=== PATIENT | female | born 1990 | race Two or more races ===

== ENCOUNTER 2016-12-25 11:59 | Emergency (ER) | payer OTHER ==
[~2016-12-25] VITALS: Ht 154.9 cm; Wt 92.1 kg
[2016-12-25 12:06] VITALS: BP 150/76
== END 2016-12-25 13:01 | disposition home or self-care (01) ==
LOC: ED 11:59
DX: G89.29 Other chronic pain (principal); M54.5 Low back pain

== ENCOUNTER 2017-09-17 07:06 | Emergency (ER) | payer OTHER ==
[~2017-09-17] VITALS: Ht 154.9 cm; Wt 86.2 kg
[2017-09-17 07:19] VITALS: Ht 154.9 cm; Wt 86.2 kg
[2017-09-17 07:43] LABS: PLATELET COUNT 233 x10^3mcL (130-400); RED CELL DISTRIBUTION WIDTH 14.5 % (11.5-14.5)
[2017-09-17 07:54] LABS: CALCIUM 8.7 mg/dL (8.5-10.1); CARBON DIOXIDE 27.6 mmol/L (21-32); CHLORIDE SERUM 103 mmol/L (98-107); CREATININE SERUM 0.6 mg/dL (0.6-1.0); GFR1 > 60 mL/min; GLUCOSE SERUM 102 mg/dL (74-106); POTASSIUM SERUM 4.3 mmol/L (3.5-5.1); SODIUM SERUM 138 mmol/L (136-145)
[2017-09-17 07:58] LABS: ALKALINE PHOSPHATASE 84 U/L (46-116); ALT/SGPT 33 U/L (14-59); AMYLASE 32 U/L (25-115); AST/SGOT 17 U/L (15-37); BILIRUBIN TOTAL 0.3 mg/dL (0.20-1.00); LIPASE 63 IU/L (73-393); TOTAL PROTEIN, SERUM 7.6 g/dL (6.4-8.2)
[2017-09-17 08:11] LABS: urine erythrocyte NEGATIVE (NEGATIVE)
[2017-09-17 08:18] LABS: microscopic required? YES
[2017-09-17 12:34] VITALS: BP 120/59
== END 2017-09-17 12:15 | disposition home or self-care (01) ==
LOC: ED 07:06
PROVIDERS: Specialist
DX: K43.9 Ventral hernia without obstruction or gangrene (principal)
CPT/HCPCS: 83880; 87491; 87591; J1885; J7030; Q9967

== ENCOUNTER 2017-09-23 21:02 | Inpatient (IN) | payer OTHER ==
[~2017-09-23] VITALS: Ht 154.9 cm; Wt 79.0 kg
[2017-09-23 21:35] VITALS: Ht 154.9 cm; Wt 79.0 kg
[2017-09-23 23:50] LABS: BASOPHIL % 0.5 % (0-2); PLATELET COUNT 221 x10^3mcL (130-400); RED CELL DISTRIBUTION WIDTH 14.5 % (11.5-14.5)
[2017-09-24 00:06] LABS: ALKALINE PHOSPHATASE 86 U/L (46-116); ALT/SGPT 35 U/L (14-59); AST/SGOT 25 U/L (15-37); BILIRUBIN TOTAL 0.1 mg/dL (0.20-1.00); CALCIUM 8.8 mg/dL (8.5-10.1); CARBON DIOXIDE 28.2 mmol/L (21-32); CHLORIDE SERUM 102 mmol/L (98-107); CREATININE SERUM 0.6 mg/dL (0.6-1.0); GFR1 > 60 mL/min; GLUCOSE SERUM 91 mg/dL (74-106); LIPASE 50 IU/L (73-393); POTASSIUM SERUM 4.1 mmol/L (3.5-5.1); SODIUM SERUM 137 mmol/L (136-145); TOTAL PROTEIN, SERUM 7.6 g/dL (6.4-8.2)
[2017-09-24 01:57] VITALS: BP 102/51
[2017-09-24 02:23] LABS: MAGNESIUM 2.1 mg/dL (1.8-2.4); PHOSPHOROUS 3.7 mg/dL (2.5-4.9)
[2017-09-24 02:24] LABS: CHOLESTEROL/HDL RATIO 5.3
[2017-09-24 02:25] LABS: T3 TOTAL 1.18 ng/mL
[2017-09-24 02:46] LABS: FREE T4 0.82 ng/dL (0.76-1.46); FREE THYROXINE INDEX 2.2 ug/dL (1.4-4.5); T4(THYROXINE) 7.2 ug/dL (4.7-13.3)
[2017-09-24 03:15] LABS: AMPHETAMINE QUAL UR NONE DETECTED (NEG <=1000)
[2017-09-24 04:55] VITALS: BP 108/51
[2017-09-24 08:53] VITALS: BP 107/37
[2017-09-24 18:04] VITALS: BP 109/60
[2017-09-24 19:00] VITALS: BP 98/65
[2017-09-24 22:07] VITALS: BP 99/52
[2017-09-25 07:07] VITALS: BP 97/53
[2017-09-25 09:50] VITALS: BP 118/71
[2017-09-25 10:11] LABS: CALCIUM 7.6 mg/dL (8.5-10.1); CARBON DIOXIDE 26.9 mmol/L (21-32); CHLORIDE SERUM 107 mmol/L (98-107); CREATININE SERUM 0.6 mg/dL (0.6-1.0); GFR1 > 60 mL/min; GLUCOSE SERUM 97 mg/dL (74-106); MAGNESIUM 1.9 mg/dL (1.8-2.4); PHOSPHOROUS 2.6 mg/dL (2.5-4.9); POTASSIUM SERUM 3.7 mmol/L (3.5-5.1); SODIUM SERUM 140 mmol/L (136-145)
[2017-09-25 11:15] LABS: BASOPHIL % 0.4 % (0-2); PLATELET COUNT 172 x10^3mcL (130-400); RED CELL DISTRIBUTION WIDTH 14.3 % (11.5-14.5)
[2017-09-25 17:10] VITALS: BP 94/43
[2017-09-25 18:29] VITALS: BP 109/61
[2017-09-25 20:36] VITALS: BP 107/72
[2017-09-26 05:34] VITALS: BP 108/70
[2017-09-26] MEDS ORDERED: LIPI20 PO (09:07)
[2017-09-26] MEDS ORDERED: COL100 PO (09:08)
[2017-09-26] MEDS ORDERED: LORTAB 5/3251 TAB PO (09:09)
[2017-09-26] MEDS ORDERED: BD LACTINEX1.4 MG PO (09:10)
[2017-09-26] MEDS ORDERED: KEFLEX500 M1 PO (09:10)
[2017-09-26 09:30] VITALS: BP 113/53
[2017-09-26 10:37] LABS: CALCIUM 7.9 mg/dL (8.5-10.1); CARBON DIOXIDE 26.6 mmol/L (21-32); CHLORIDE SERUM 105 mmol/L (98-107); CREATININE SERUM 0.6 mg/dL (0.6-1.0); GFR1 > 60 mL/min; GLUCOSE SERUM 92 mg/dL (74-106); POTASSIUM SERUM 3.4 mmol/L (3.5-5.1); SODIUM SERUM 139 mmol/L (136-145)
[2017-09-26 10:41] LABS: MAGNESIUM 1.8 mg/dL (1.8-2.4)
[2017-09-26 10:48] LABS: BASOPHIL % 0.3 % (0-2); PLATELET COUNT 169 x10^3mcL (130-400); RED CELL DISTRIBUTION WIDTH 14.2 % (11.5-14.5)
[2017-09-26 13:18] VITALS: BP 113/53
== END 2017-09-26 14:52 | disposition home or self-care (01) | DRG 227 ==
LOC: ED 21:02 → DU 09-24 00:54 → MU 09-24 00:54 → DU 09-24 01:27 → MU 09-24 22:15
PROVIDERS: Emergency Medicine; Family Medicine; Surgery
PROC: 0WQF0ZZ Repair Abdominal Wall, Open Approach (ICD-10-PCS; principal; 2017-09-24 09:30)
DX: K56.609 Unspecified intestinal obstruction, unspecified as to partial versus complete obstruction (principal); K43.6 Other and unspecified ventral hernia with obstruction, without gangrene; E66.9 Obesity, unspecified; Z68.30 Body mass index [BMI] 30.0-30.9, adult; F41.9 Anxiety disorder, unspecified; F17.200 Nicotine dependence, unspecified, uncomplicated; F19.10 Other psychoactive substance abuse, uncomplicated
CPT/HCPCS: 83880; 84439; C1781; J0330; J0690; J1885; J2175; J2250; J2270; J2405; J2704; J3010; J3490; J7030; J7120

== ENCOUNTER 2018-07-03 16:44 | Emergency (ER) | payer OTHER | END 2018-07-03 20:15 | disposition home or self-care (01) | LOC: ED 16:44 ==

== ENCOUNTER 2018-10-27 18:28 | Emergency (ER) | payer OTHER ==
[~2018-10-27] VITALS: Ht 154.9 cm; Wt 83.0 kg
[~2018-10-27 18:28] MED LIST: BD LACTINEX1.4 MG PO; COL100 PO; KEFLEX500 M1 PO; LIPI20 PO; LORTAB 5/3251 TAB PO
[2018-10-27 19:08] VITALS: Ht 154.9 cm; Wt 83.0 kg
[2018-10-27 23:11] VITALS: BP 119/62
== END 2018-10-27 23:11 | disposition home or self-care (01) ==
LOC: ED 18:28
DX: K59.00 Constipation, unspecified (principal); Z98.890 Other specified postprocedural states
CPT/HCPCS: J1885

== ENCOUNTER 2018-11-01 22:04 | Emergency (ER) | payer OTHER ==
[~2018-11-01] VITALS: Ht 154.9 cm; Wt 82.1 kg
[2018-11-01 22:08] VITALS: Ht 154.9 cm; Wt 82.1 kg
[2018-11-02 01:20] VITALS: BP 109/57
== END 2018-11-02 01:21 | disposition home or self-care (01) ==
LOC: ED 22:04
DX: M94.0 Chondrocostal junction syndrome [Tietze] (principal); Z98.890 Other specified postprocedural states
CPT/HCPCS: 85378; J1885; J2270; Q0092; Q9967